=== PATIENT | female | born 1950 | race Caucasian/White ===

== ENCOUNTER 2020-02-08 17:23 | Inpatient (IN) | payer BC ==
[~2020-02-08] VITALS: Ht 154.9 cm; Wt 79.4 kg
[2020-02-08 17:55] LABS: PLATELET COUNT 198 thou/uL (150-400); WBC 10.3 thou/uL (4.0-11.0)
[2020-02-08 17:56] LABS: HEMATOCRIT 35.9 % (37.0-47.0); HEMOGLOBIN 11.7 gm/dL (12.0-15.0); MCH 30.5 pg (26.0-34.0); MCHC 32.5 g/dL (28.0-37.0); RBC 3.82 mil/uL (4.20-5.00); RDW 13.9 % (10.5-14.5)
[2020-02-08 18:13] LABS: ALBUMIN 2.1 g/dL (3.4-5.0); CREATININE 1.3 mg/dL (0.6-1.0); DIRECT BILIRUBIN 0.2 mg/dL (<0.1-0.2); TOTAL BILIRUBIN 0.6 mg/dL (0.2-1.0); TOTAL PROTEIN 5.9 g/dL (6.4-8.2); TROPONIN-I 0.36 ng/mL (<0.06)
[2020-02-08 18:17] LABS: CALCIUM 12.1 mg/dL (8.5-10.1)
[2020-02-08 18:18] LABS: POTASSIUM 2.4 mmol/L (3.5-5.1)
[2020-02-08 19:08] LABS: ABSOLUTE NEUTROPHILS 2.2 thou/uL (1.4-8.2); ATYPICAL LYMPHS 3 %
[2020-02-08 19:09] LABS: BE(vivo) -7.3 mmol/L (-2 to +3); HCO3 18.7 mmol/L (22.0-26.0); PCO2 39.4 mmHg (35.0-45.0); sO2 85.3 % (92.0-98.0)
[2020-02-08 19:10] LABS: PO2 54.8 mmHg (80.0-100.0); pH 7.294 (7.360-7.450)
[2020-02-08 19:29] LABS: ICTOTEST (BILI CONFIRMATORY) Negative (Negative); URINE BILIRUBIN 1+ (Negative); URINE BLOOD 3+ (Negative); URINE CLARITY CLEAR; URINE COLOR YELLOW; URINE GLUCOSE-RANDOM* NEGATIVE (Negative); URINE KETONES NEGATIVE (Negative); URINE LEUKOCYTES-REFLEX 1+ (Negative); URINE NITRITE-REFLEX NEGATIVE (Negative); URINE PROTEIN (DIPSTICK) 2+ (Negative)
[2020-02-08 19:37] LABS: AMP/METHAMP Negative (Negative); BARBITURATES Negative (Negative); BENZODIAZEPINES Negative (Negative); COCAINE Negative (Negative); METHADONE Negative (Negative); OPIATES Negative (Negative); PCP Negative (Negative)
[2020-02-08 19:39] LABS: CASTS None Seen /LPF (None Seen); CRYSTALS None Seen /LPF (None Seen); SQUAMOUS 4-10 Moderate /LPF (0-3)
[2020-02-08 19:40] LABS: URINE WBC-REFLEX 6-15 Few /HPF (0-5)
[2020-02-08 19:41] LABS: BACTERIA-REFLEX 1-9 Few /HPF (None Seen); URINE RBC 0-2 Rare /HPF (0-2)
[2020-02-08 21:54] LABS: D-DIMER 12.79 ug/mLFEU (0.19-0.50); FIBRINOGEN 597.9 mg/dL (210-360)
[2020-02-08 22:19] LABS: CHOLESTEROL 89 mg/dL (<200); HDL CHOLESTEROL 40 mg/dL (>40); LDL CHOLESTEROL 29 mg/dL (<100); TC:HDL 2.2 Ratio (Not establshd); TRIGLYCERIDE 104 mg/dL (<150); VLDL 21 mg/dL (<40)
[2020-02-08 22:20] LABS: SERUM ASSESSMENT Clear
--- NOTE | 2020-02-08 23:06 | NUR ---
70 Y/[address] PT OF DR BEST ADMITTED TO ICU FROM ER WITH DX OF POST CODE. INTUBATED AND NONRESPONSIVE. NO COUGH NO GAG NO PUPIL REACTION MONITOR SHOWS ATRIAL TACH. FOLLOWS NO COMMANDS. WILL CONBT TO MONITOR.
[2020-02-08 23:16] VITALS: BP 142/59
[2020-02-08 23:30] VITALS: BP 117/74
[2020-02-09] VITALS (85 sets, daily range): BP systolic 76–192; BP diastolic 26–114
[2020-02-09 00:13] LABS: HEMATOCRIT 39.5 % (37.0-47.0); HEMOGLOBIN 12.7 gm/dL (12.0-15.0); MCH 29.7 pg (26.0-34.0); MCHC 32.2 g/dL (28.0-37.0); MCV 92.2 fL (80.0-100.0); RBC 4.29 mil/uL (4.20-5.00); RDW 13.8 % (10.5-14.5)
--- NOTE | 2020-02-09 00:20 | NUR ---
PT PLACED ON HYPOTHERMIA PROTOCAL. WILL CONT TO MONITOR.
[2020-02-09 00:25] LABS: APTT 28.7 Seconds (24.5-32.8); INR 1.3; PROTIME 13.4 Seconds (9.3-11.4)
[2020-02-09 00:26] LABS: WBC 30.5 thou/uL (4.0-11.0)
[2020-02-09 00:27] LABS: PLATELET COUNT 391 thou/uL (150-400)
[2020-02-09 01:09] LABS: CALCIUM 10.5 mg/dL (8.5-10.1); CREATININE 1.8 mg/dL (0.6-1.0); MAGNESIUM 2.9 mg/dL (1.8-2.4)
[2020-02-09 01:14] LABS: TROPONIN-I 48.64 ng/mL (<0.06)
[2020-02-09 01:15] LABS: POTASSIUM 2.3 mmol/L (3.5-5.1)
[2020-02-09 01:47] LABS: ABSOLUTE NEUTROPHILS 26.2 thou/uL (1.4-8.2); PLATELET ESTIMATE NORMAL
[2020-02-09 02:38] LABS: BE(vivo) -15.6 mmol/L (-2 to +3); HCO3 11.1 mmol/L (22.0-26.0); PO2 130.2 mmHg (80.0-100.0); pH 7.199 (7.360-7.450)
[2020-02-09 05:25] LABS: HEMATOCRIT 29.8 % (37.0-47.0); MCH 29.8 pg (26.0-34.0); MCHC 33.2 g/dL (28.0-37.0); MCV 89.9 fL (80.0-100.0); RBC 3.32 mil/uL (4.20-5.00); RDW 13.4 % (10.5-14.5); WBC 20.8 thou/uL (4.0-11.0)
[2020-02-09 05:27] LABS: HEMOGLOBIN 9.9 gm/dL (12.0-15.0); PLATELET COUNT 250 thou/uL (150-400)
[2020-02-09 05:38] LABS: CREATININE 2.3 mg/dL (0.6-1.0)
[2020-02-09 05:40] LABS: APTT 31.7 Seconds (24.5-32.8); INR 1.9; PROTIME 19.6 Seconds (9.3-11.4)
[2020-02-09 05:46] LABS: MAGNESIUM 2.8 mg/dL (1.8-2.4); PHOSPHORUS 8.7 mg/dL (2.5-4.9)
[2020-02-09 05:48] LABS: TROPONIN-I 44.03 ng/mL (<0.06)
[2020-02-09 05:49] LABS: CALCIUM 8.3 mg/dL (8.5-10.1); POTASSIUM 3.8 mmol/L (3.5-5.1)
--- NOTE | 2020-02-09 06:00 | NUR ---
TOTAL OF 5 MAPS OF NA BICARD GIVEN ERENDIRA AND PT IS NOW ONB BICARTB GTT AT 75 CC/HR
--- NOTE | 2020-02-09 06:40 | NUR ---
PT REACHED GOAL TEMP OF 32.7 REMAINS INTUBATED AND NONRESPONSIVE LEVOPHED GTT TITRATED OFF. REMAINS ON VERSED GTT AT 3 MG NA BICARB 75 CC/HR WILL CONT TO MONITOR
[2020-02-09 07:01] LABS: ABSOLUTE NEUTROPHILS 16.4 thou/uL (1.4-8.2); METAMYELOCYTES 3 %
--- NOTE | 2020-02-09 08:18 | EKG ---
[facility] [place] [address] ELECTROCARDIOGRAM REPORT Name: KIRBY DIEZ Room #: 240-P ADM IN M.R.#: [id number] Admission: 02/08/20 Attend Phys: Penny Artis MD Discharge: Date of : 52 Report #: [id number] THIS REPORT FOR: cc: Sinan Mcdermott Theodore M. DO Couchonnal, Luis F. MD ~ THIS REPORT FOR: //name// [facility] ED Test Date: 2020-02-08 Test Time: 17:31:20 Pat Name: KIRBY DIEZ Department: Room: 240 Gender: F Welder Plasma Arc: ERMELINDA : 1950 Requested By: Noah Trinidad Order Number: [id number] MD: Jaime Decker Measurements Intervals [place] Rate: 96 P: CA: QRS: -91 QRSD: 299 T: 106 QT: 522 QTc: 660 Interpretive Statements Wide complex tachycardia Concerning for electrolyte abnormality No previous ECG available for comparison Electronically Signed On 02-09-2020 8:18:03 CDT by Jaime Decker [email or web address] <ELECTRONICALLY SIGNED> By: Jaime Decker MD 02/09/20 0818 173 173 Jaime Decker MD /KEIRY
--- NOTE | 2020-02-09 08:19 | EKG ---
[facility] [place] [address] ELECTROCARDIOGRAM REPORT Name: KIRBY DIEZ Room #: 240-P ADM IN M.R.#: [id number] Admission: 02/08/20 Attend Phys: Penny Artis MD Discharge: Date of : 52 Report #: [id number] THIS REPORT FOR: cc: Sinan Mcdermott Theodore M. DO Couchonnal, Luis F. MD ~ THIS REPORT FOR: //name// [facility] Test Date: 2020-02-09 Test Time: 08:05:42 Pat Name: KIRBY DIEZ Department: Room: 240 P Gender: F Pleating Supervisor: GARTH : 1950 Requested By: Sydnee Kim Order Number: [id number] MD: Jaime Decker Measurements Intervals [place] Rate: 90 P: 61 [place]: 59 QRS: -33 QRSD: 95 T: 118 QT: 464 QTc: 568 Interpretive Statements Sinus rhythm Short [place] interval Inferior infarct, old Lateral leads are also involved Prolonged QT interval Baseline wander in lead(s) II,III,aVF Compared to ECG 02/08/2020 17:31:20 Electronically Signed On 02-09-2020 8:19:34 CDT by Jaime Decker [email or web address] <ELECTRONICALLY SIGNED> By: Jaime Decker MD 02/09/20818 4 4 Jaime Decker MD /EPI
[2020-02-09] MEDS ORDERED: ELIQUIS5 MG PO (08:30)
[2020-02-09 08:32] LABS: HEMATOCRIT 33.2 % (37.0-47.0); HEMOGLOBIN 10.8 gm/dL (12.0-15.0); MCH 29.7 pg (26.0-34.0); MCHC 32.5 g/dL (28.0-37.0); MCV 91.4 fL (80.0-100.0); RBC 3.63 mil/uL (4.20-5.00); RDW 13.9 % (10.5-14.5); WBC 18.9 thou/uL (4.0-11.0)
[2020-02-09] MEDS ORDERED: TAMBOCOR 100 M100 M1 PO (08:32)
[2020-02-09] MEDS ORDERED: LEVO-T25 MCG PO (08:33)
[2020-02-09] MEDS ORDERED: BENICAR40 MG PO (08:34)
[2020-02-09 08:37] LABS: CALCIUM 8.4 mg/dL (8.5-10.1); CREATININE 2.4 mg/dL (0.6-1.0); POTASSIUM 3.4 mmol/L (3.5-5.1)
[2020-02-09] MEDS ORDERED: PAXIL 20 MG TAB20 MG PO (08:37)
[2020-02-09] MEDS ORDERED: CHLORTHALIDONE25 MG PO (08:37)
[2020-02-09] MEDS ORDERED: LIPITOR40 MG PO (08:38)
[2020-02-09] MEDS ORDERED: TOPROL XL25 MG PO (08:42)
[2020-02-09] MEDS ORDERED: VITAMIN D310 MC2 PO (08:42)
[2020-02-09 09:04] LABS: APTT 33.8 Seconds (24.5-32.8); FIBRINOGEN 488.2 mg/dL (210-360); INR 1.9; PROTIME 19.3 Seconds (9.3-11.4)
--- NOTE | 2020-02-09 09:15 | NUR ---
Spoke with Dr. Artis regarding GI bleed. Lab results given. Orders given. GI consulted. FMS placed on pt. Large amount of red with brown flecks stool. hypothermia protocol in progress. Pt sister updated. Emotional support given.
--- NOTE | 2020-02-09 10:00 | NUR ---
Dr. Padron updated. General update and lab given. States to continue hypothemia despite gi bleed.
--- NOTE | 2020-02-09 11:07 | NUR ---
chart review. unable to visit with momo rt on vent, rt cardiac arrest outside hospital. family, nephew, and son heard noise in house and found her on floor. and called ems, they brought her in. will cont following as needed for dc needs.
--- NOTE | 2020-02-09 13:00 | NUR ---
Reported low urine output to Dr. Artis. Renal consult ordered.
[2020-02-09 13:33] LABS: HEMOGLOBIN 10.7 gm/dL (12.0-15.0); MCH 30.7 pg (26.0-34.0); MCHC 34.4 g/dL (28.0-37.0); MCV 89.3 fL (80.0-100.0); PLATELET COUNT 256 thou/uL (150-400); RBC 3.47 mil/uL (4.20-5.00); RDW 13.5 % (10.5-14.5); WBC 16.4 thou/uL (4.0-11.0)
[2020-02-09 13:46] LABS: CALCIUM 8.7 mg/dL (8.5-10.1); CREATININE 2.4 mg/dL (0.6-1.0); POTASSIUM 3.3 mmol/L (3.5-5.1)
[2020-02-09 13:47] LABS: APTT 33.5 Seconds (24.5-32.8); INR 1.8; PROTIME 18.3 Seconds (9.3-11.4)
[2020-02-09 13:55] LABS: MAGNESIUM 2.7 mg/dL (1.8-2.4); PHOSPHORUS 5.6 mg/dL (2.5-4.9)
[2020-02-09 13:58] LABS: TROPONIN-I 42.55 ng/mL (<0.06)
[2020-02-09 14:10] LABS: ABSOLUTE NEUTROPHILS 14.3 thou/uL (1.4-8.2); METAMYELOCYTES 1 %
--- NOTE | 2020-02-09 15:00 | NUR ---
Dr. Arauz Renal called for new consult. Update given. will round on pt.
--- NOTE | 2020-02-09 18:00 | NUR ---
Pt sister called. Update given. She had spoke with MD. Plan to have more family come into town and withdraw care once pt passively warmed tommorrow.
[2020-02-09 21:38] LABS: HEMATOCRIT 28.7 % (37.0-47.0); MCH 30.5 pg (26.0-34.0); MCHC 34.8 g/dL (28.0-37.0); MCV 87.8 fL (80.0-100.0); RBC 3.27 mil/uL (4.20-5.00); RDW 13.7 % (10.5-14.5); WBC 10.5 thou/uL (4.0-11.0)
[2020-02-09 21:43] LABS: PLATELET COUNT 177 thou/uL (150-400)
[2020-02-09 21:51] LABS: CALCIUM 8.1 mg/dL (8.5-10.1); CREATININE 2.4 mg/dL (0.6-1.0); MAGNESIUM 2.3 mg/dL (1.8-2.4); PHOSPHORUS 1.9 mg/dL (2.5-4.9)
[2020-02-09 21:59] LABS: TROPONIN-I 28.15 ng/mL (<0.06)
[2020-02-09 22:19] LABS: ABSOLUTE NEUTROPHILS 8.6 thou/uL (1.4-8.2)
[2020-02-09 22:20] LABS: ANISOCYTOSIS 1+; LARGE PLATELETS OCCASIONAL
[2020-02-09 22:21] LABS: APTT 33.9 Seconds (24.5-32.8); INR 1.6; PROTIME 16.9 Seconds (9.3-11.4)
[2020-02-10] VITALS (41 sets, daily range): BP systolic 99–187; BP diastolic 41–101
[2020-02-10 02:30] LABS: GLYCOHEMOGLOBIN (HGB A1C) 6.1 % (4.8-5.6)
--- NOTE | 2020-02-10 02:48 | NUR ---
CRITICAL CARE NOTE: CONTINUES ON HYPOTHERMIA PROTOCOL WITH TEMPS AT GOAL, ASSESSMENT COMPLETED- GI BLEED NOTED EVIDENCED BY REDDISH/DARK LIQUID FECAL MATTER IN FMS. GI CONSULTED AND SAW PT. PLANS TO WITHDRAW CARE IN AM.
[2020-02-10 05:19] LABS: BE(vivo) 9.6 mmol/L (-2 to +3); HCO3 31.8 mmol/L (22.0-26.0); PCO2 34.2 mmHg (35.0-45.0); PO2 166.9 mmHg (80.0-100.0); pH 7.586 (7.360-7.450); sO2 99.4 % (92.0-98.0)
[2020-02-10 05:30] LABS: HEMATOCRIT 29.4 % (37.0-47.0); HEMOGLOBIN 10.1 gm/dL (12.0-15.0); MCH 30.3 pg (26.0-34.0); MCHC 34.5 g/dL (28.0-37.0); PLATELET COUNT 171 thou/uL (150-400); RBC 3.34 mil/uL (4.20-5.00); RDW 13.7 % (10.5-14.5); WBC 8.9 thou/uL (4.0-11.0)
[2020-02-10 06:09] LABS: ALBUMIN 1.8 g/dL (3.4-5.0); CALCIUM 8.1 mg/dL (8.5-10.1); CREATININE 2.9 mg/dL (0.6-1.0); TOTAL BILIRUBIN 1.5 mg/dL (0.2-1.0); TOTAL PROTEIN 4.9 g/dL (6.4-8.2)
[2020-02-10 06:27] LABS: POTASSIUM 1.8 mmol/L (3.5-5.1)
--- NOTE | 2020-02-10 07:34 | EKG ---
[facility] [place] [address] ELECTROCARDIOGRAM REPORT Name: KIRBY DIEZ Room #: 240-P ADM IN M.R.#: [id number] Admission: 02/08/20 Attend Phys: Penny Artis MD Discharge: Date of : 52 Report #: [id number] THIS REPORT FOR: cc: Sinan Mcdermott Theodore M. DO Santiago, Patrick MD [facility] ~ THIS REPORT FOR: //name// [facility] ED Test Date: 2020-02-08 Test Time: 18:01:35 Pat Name: KIRBY DIEZ Department: Room: 240 P Gender: F Per Diem Clerk: WALDO : 1950 Requested By: Noah Trinidad Order Number: [id number] MD: Salazar Zambrano Measurements Intervals [place] Rate: 113 P: 225 MD: 113 QRS: -68 QRSD: 324 T: 99 QT: 442 QTc: 607 Interpretive Statements Suspect Ectopic atrial tachycardia, unifocal Left bundle branch block Compared to ECG 02/08/2020 17:31:20 No Significant change Electronically Signed On 02-10-2020 7:34:26 CDT by Salazar Zambrano [email or web address] <ELECTRONICALLY SIGNED> By: Salazar Zambrano MD, [facility] 02/10/20 0734 180 180 Salazar Zambrano MD, [facility] /EPI
[2020-02-10 09:51] LABS: ABSOLUTE NEUTROPHILS 8.1 thou/uL (1.4-8.2)
[2020-02-10 09:53] LABS: ANISOCYTOSIS 1+
--- NOTE | 2020-02-10 10:52 | NUR ---
noted in chart, gi consult, and family meeting rt possible comfort care. rewarming, remains intubated. will cont following as needed for dc needs.
--- NOTE | 2020-02-10 15:30 | NUR ---
Call received from 'Mariah' nurse stationed in the [facility] that about six members from the [facility] family had arrived and would like to see the patient and were planning to withdraw care. I went down to talk with the family. Pt's son stated he is the DPOA but that the patient does not have a written advance directive. Stated that he has a sister who has been estranged for 15 years. Son and sister stated they would like to withdraw care. Explained to family that withdraw would require a physician order and I would talk to Dr Artis. Also discussed that I would clarify the current rules on visiting. I took son's phone number and contacted Dr Artis. Dr Artis stated that she had left the hospital and asked if Dr Padron could handle the situation and to notify her of the outcome. Dr Hobson here to see patient. Stated he would call and talk with the patient's son. Dr Padron here in ICU and notified of request to talk with patient about withdrawel of care. Dr Padron went down to [facility] to talk with the family.
--- NOTE | 2020-02-10 16:14 | NUR ---
Dr Padron talked to patients family. research manager Zi Miller RN also notified and present for portion of Dr. Padron's conversation with family. Orders received for Comfort Care. Those family members wishing to see patient prior to withdraw will be allowed to visit two at a time for approximately 15 minute visits. Pt's son and sister currently in the room. Effort made to page a member of pastoral care per family request but informed by the electric car operator that no steamer operator is here at the hospital.
--- NOTE | 2020-02-10 16:45 | NUR ---
Pt medicated with 2 mg of Morphine IV prior to extubation at 1642. OG to suction to empty stomach. Pt extubated at 1645 by RT. OG dc'd by RT with extubation. Placed on room air by RT per family request. Pt's son visited prior to extubation. Pt's sister Phyllis will remain at bedside with patient.
--- NOTE | 2020-02-10 17:26 | NUR ---
Dr Padron notified of patient . Order received to have two nurses pronouce. Call was also placed to Dr Artis's numeric pager to notify of pt . Pt pronounced with Fang Sherwood RN. Pt Asystole in two leads. No respiration. No heart tones. No pupillary response. Time of recorded as 1725.
--- NOTE | 2020-02-10 18:20 | NUR ---
Pt's sister, Phyllis, requested to have patients home medications disposed of in our pharmacy. Medications taken to the pharmacy for disposal by charge nurse, Fang Sherwood RN. Medications were taken to the outpatient pharmacy.
--- NOTE | 2020-02-10 19:52 | NUR ---
Security here to transport pt's body to the [facility]. Pt is candidate for eye/tissue donation- security made aware.
--- NOTE | 2020-02-11 10:38 | HC ---
[facility] [place] [address] CONSULTATION Name: KIRBY DIEZ Room #: 240-P [facility] IN M.R.#: [id number] Admission: 02/08/20 Attend Phys: Penny Artis MD Discharge: 02/10/20 Date of : 52 Report #: [id number] THIS REPORT FOR: cc: Sinan Mcdermott,Galileo Ken MD ~ CC: Penny Mcdermott DATE OF SERVICE: 02/09/2020 HISTORY OF PRESENT ILLNESS: This is a 70-year-old female patient, who was evaluated by me for hypoxic encephalopathy. I talked to the nurses looking after this patient and subsequently I called the patient's son and had a long talk with him. I reviewed the records and it looks like this patient had a cardiac arrest and prolonged resuscitation. Even before cardiac arrest, she was not feeling good, but I do not know what the etiology was. She has called her doctor to make some appointment. The patient had a stroke about a year ago. CT scan does show the prior stroke. It looks like it affected her vision. It is not sure whether that affected the memory. She was living with the nephew, who had to help her some, but not with every activity. REVIEW OF SYSTEMS: Positive for stroke. She does have a baseline problem. Presently, she has all kind of systemic problem. She has a shock liver and kidney problem. She had some shakiness, which I am not sure about. She had a fall. She had an injury to the eye. That is all the 14-point review of system I can get. It looks like she has a history of hypothyroidism, hypertension, and obstructive sleep apnea. PAST MEDICAL HISTORY: Positive for stroke. FAMILY HISTORY: Unremarkable. SOCIAL HISTORY: She lives with the nephew, whom I was not able to talk, but I was able to talk to the patient's son. PHYSICAL EXAMINATION: Her examination indicate that according to the nurses, her sedation was turned off and it was short-acting sedation of Versed. She has not gotten any sedation for several hours now. She has no response of any kind. Her pupils are midpoint, but nonreactive. She has no response. Even plantars are mute. She is on a vent. Cardiac examinations appear noncontributory. She has a history of AFib as I understand. Blood pressure is 120/49, respirations 14, pulse of 107. 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 With such a prolonged downtime and evidence of shock [address] [address] CONSULTATION Name: KIRBY DIEZ Room #: [facility] IN M.R.#: [id number] Admission: 02/08/20 Attend Phys: Penny Artis MD Discharge: 02/10/20 Date of : 52 Report #: [id number] a shock kidney, her prognosis is extremely guarded. It is not even clear what her original problem was. I do not know what was causing her back pain and that need to be worked up separately and she did fall and she does have injury to the eye. I do not know whether the spine was cleared or not and what the cause of her back pain was, which was her original event. All of that is most likely redundant at this stage because she is nonresponsive. I discussed with the patient's son that in general her prognosis from hypoxic encephalopathy is very poor. However, if he want to be more certain about the prognosis, she will require multiple other workup. I discussed all those workup with him. It looks like he would like to proceed with the comfort care. If that is their decision that we should respect that because overall the patient's condition does not look very good. I discussed that options with them and discussed the option of doing an EEG to see how much activity is there. I did discuss with them that the EEG sometime can give rise to fall so because sometime EEG takes a little while to become abnormal or at least severely abnormal, but even then, her other workup of back pain and spine need to be addressed and I do not know where that will be. In short, I think the family need to decide. If they want to make a comfort and palliative care that is fine with me and then life support measures can be discontinued. If they want to do an EEG, we can do an EEG to see how the activity looks and I explained all the above to them. It looks like the son indicates that he would like to do the palliative care, but a couple of his sisters would like to get an EEG done. We will go ahead and schedule that and they can make their mind. A total of about 50 minutes of time was spent taking care of this patient and majority was spent counseling the family as well as coordinating care including reviewing the imaging studies and all the records in the computer. <ELECTRONICALLY SIGNED> By: Galileo Hobson MD 02/11/20 1038 1518 1659 Galileo Hobson MD /nt
== END 2020-02-10 17:26 | DRG 871 ==
LOC: ER 17:23 → EROBS 20:15 → ICU 20:15
PROVIDERS: Emergency Medicine; Nurse Practitioner Family; Pediatrics; ADMIT Hospitalist; ATTEND Hospitalist
PROC: 0BH17EZ Insertion of Endotracheal Airway into Trachea, Via Natural or Artificial Opening (ICD-10-PCS; principal; 2020-02-08)
PROC: 5A1945Z Respiratory Ventilation, 24-96 Consecutive Hours (ICD-10-PCS; principal; 2020-02-08)
PROC: 02H633Z Insertion of Infusion Device into Right Atrium, Percutaneous Approach (ICD-10-PCS; 2020-02-09)
DX: A41.9 Sepsis, unspecified organism (principal); J96.21 Acute and chronic respiratory failure with hypoxia; I21.4 Non-ST elevation (NSTEMI) myocardial infarction; G93.41 Metabolic encephalopathy; N17.9 Acute kidney failure, unspecified; N39.0 Urinary tract infection, site not specified; K92.2 Gastrointestinal hemorrhage, unspecified; E87.6 Hypokalemia; I48.91 Unspecified atrial fibrillation; E78.5 Hyperlipidemia, unspecified; I49.01 Ventricular fibrillation; Z66 Do not resuscitate; F32.9 Major depressive disorder, single episode, unspecified; G47.33 Obstructive sleep apnea (adult) (pediatric); N18.9 Chronic kidney disease, unspecified; R57.0 Cardiogenic shock; I12.9 Hypertensive chronic kidney disease with stage 1 through stage 4 chronic kidney disease, or unspecified chronic kidney disease; S00.10XA Contusion of unspecified eyelid and periocular area, initial encounter; X58.XXXA Exposure to other specified factors, initial encounter; Y93.89 Activity, other specified; Y92.89 Other specified places as the place of occurrence of the external cause; Y99.8 Other external cause status; Z86.73 Personal history of transient ischemic attack (TIA), and cerebral infarction without residual deficits; Z82.49 Family history of ischemic heart disease and other diseases of the circulatory system
CPT/HCPCS: 10078